=== PATIENT | female | born 1985 | race Caucasian/White ===

== ENCOUNTER 2023-01-11 12:21 | Day surgery (SDC) | payer BC ==
[2023-01-11] MEDS ORDERED: Dextrose 5%-Lactated Ringers 1,000 ML IV SCH (12:30)
[2023-01-11] MEDS ORDERED: Midazolam 1 MG/ML 2 ML SDV ONE (12:36)
[2023-01-11] MEDS ORDERED: fentaNYL 50 MCG/ML SDV ONE (12:36)
[2023-01-11] MEDS ORDERED: Propofol 200 MG/20 ML SDV ONE (12:36)
== END 2023-01-11 14:28 | disposition home or self-care (01) ==
LOC: JP.SDS 12:21
PROVIDERS: ATTEND Student in an Organized Health Care Education/Training Program
DX: K29.50 Unspecified chronic gastritis without bleeding (principal); K29.80 Duodenitis without bleeding; D72.820 Lymphocytosis (symptomatic); K31.89 Other diseases of stomach and duodenum; K21.9 Gastro-esophageal reflux disease without esophagitis; E78.5 Hyperlipidemia, unspecified; M19.90 Unspecified osteoarthritis, unspecified site; E11.9 Type 2 diabetes mellitus without complications; E66.9 Obesity, unspecified; E03.9 Hypothyroidism, unspecified; Z68.41 Body mass index [BMI] 40.0-44.9, adult
CPT/HCPCS: 43239; J2250; J2704; J3010; J7121